=== PATIENT | male | born 1965 | race Caucasian/White ===

== ENCOUNTER 2018-05-08 14:18 | Emergency (ER) | payer OTHER ==
[2018-05-08 14:42] VITALS: BP 119/80; PULSE 95; RESP 16; TEMP 98.3; O2SAT 98
--- NOTE | 2018-05-08 15:31 | C.PDOC ---
History Of Present Illness CC: Sore throat Patient is a 53 year old with no known past medical history, who presents to the ED with complaint of throat discomfort X1 day, resolved multiple pimples/ boil and back pain. Patient reports associated symptoms of cough with white secretion X1 day. Patient denies any other symptoms such as fever, chills, nausea, vomiting, chest pain, palpitations, SOB, abdominal pain, hematochezia, dysuria, recent sickness or sick contact. Time Seen by Provider: 05/08/18 15:05 Chief Complaint (Nursing): ENT Problem History Per: Patient History/Exam Limitations: no limitations Onset/Duration Of Symptoms: Days Current Symptoms Are (Timing): Gone Severity: Mild Pain Scale Rating Of: 2 Past Medical History Vital Signs: Last Vital Signs Temp 98.3 F 05/08/18 14:40 Pulse 95 H 05/08/18 14:40 Resp 16 05/08/18 14:40 BP 119/80 05/08/18 14:40 Pulse Ox 98 05/08/18 15:51 Family History: States: Unknown Family Hx - Social History Hx Tobacco Use: Yes (light smoker) Hx Alcohol Use: Yes (daily) Hx Substance Use: Yes (heroin) - Immunization History Hx Tetanus Toxoid Vaccination: No Hx Influenza Vaccination: No Hx Pneumococcal Vaccination: No Review Of Systems Constitutional: Negative for: Fever, Chills, Weakness, Malaise Eyes: Negative for: Pain, Vision Change ENT: Negative for: Ear Pain, Ear Discharge Cardiovascular: Negative for: Chest Pain, Palpitations, Orthopnea Respiratory: Positive for: Cough, Sputum (Clear white sputum ). Negative for: Shortness of Breath, Hemoptysis, SOB with Excertion, Pleuritic Pain, Wheezing Gastrointestinal: Negative for: Nausea, Vomiting, Abdominal Pain, Diarrhea, Constipation Musculoskeletal: Negative for: Neck Pain, Shoulder Pain, Back Pain, Hand Pain, Foot Pain Skin: Negative for: Rash Neurological: Negative for: Weakness, Numbness, Confusion, Seizures, Dizziness Physical Exam - Physical Exam Appears: No Acute Distress Skin: Normal Color, Warm Head: Atraumatic, Normacephalic Eye(s): bilateral: EOMI Oral Mucosa: Moist Tongue: Normal Appearing Lips: Normal Appearing Throat: Normal, No Erythema, No Exudate, No Drooling, No Mass Neck: Normal, Normal ROM Chest: Symmetrical Cardiovascular: Rhythm Regular Respiratory: Normal Breath Sounds, No Accessory Muscle Use, No Rales, No Rhonchi , No Stridor, No Wheezing Gastrointestinal/Abdominal: Normal Exam, Bowel Sounds, Soft, No Tenderness, No Organomegaly, No Rebound Back: Normal Inspection Male Genital: Other (No abscess noted in the scrotum or buttocks region ) Extremity: Normal ROM, No Tenderness, No Calf Tenderness Extremity: Bilateral: Atraumatic Neurological/Psych: Oriented x3, Normal Speech, Normal Cognition, Normal Cranial Nerves ED Course And Treatment O2 Sat by Pulse Oximetry: 98 Disposition Discussed With DrBrittani: Alvin Friedman - Disposition Disposition: HOME/ ROUTINE Disposition Time: 15:31 Condition: STABLE Additional Instructions: Please discharge patient home Please find a primary care physician in order to establish care or follow up with [facility] to establish primary care, Please continue to hydrate yourself Please take over the counter cough suppressant and Tylenol as needed for headache Please consider smoking cessation as we discussed Please take care Instructions: Dehydration, Adult (DC), Viral Upper Respiratory Infection, Adult (DC) Forms: [employer] ([place]), Work Excuse - Clinical Impression Clinical Impression: Dehydration, Dry cough
== END 2018-05-08 16:05 | disposition home or self-care (01) ==
LOC: C.ER 14:18
DX: E86.0 Dehydration (principal); R05 Cough